=== PATIENT | male | born 1960 ===

== ENCOUNTER 2020-05-18 14:26 | Emergency (ER) | payer SELFPAY ==
[~2020-05-18] VITALS: Ht 177.8 cm; Wt 70.0 kg
--- NOTE | 2020-05-18 14:40 | NUR ---
PT INFORMED HE IS AT [facility]. PT MUMBLES HE IS FINE AND THEN BACK TO SLEEP
--- NOTE | 2020-05-18 16:06 | NUR ---
CLOTHES REMOVED FROM PATIENT IN PREPARATION FOR CT. NO TRAUMA NOTED UPPER TORSO, ARMS NECK. REMAINS SLEEPING, BREATHING EVEN AND UNLABORED
--- NOTE | 2020-05-18 16:25 | NUR ---
CT COMPLETED. REMAINS SLEEPING
[2020-05-18 16:41] VITALS: BP 108/64
--- NOTE | 2020-05-18 17:14 | NUR ---
DROWSY AND DIFFICULT TO ARROUSE. WILL CONTINUE TO MONITOR
--- NOTE | 2020-05-18 18:03 | NUR ---
PT AWAKENING WHEN ROUSED. DISCUSSED THAT HE NEEDS TO BE ABLE TO WALK BEFORE HE IS DISCHARGED. PT REQUESTING FOOD AND THAT THEN HE WILL TRY TO WALK
--- NOTE | 2020-05-18 18:25 | NUR ---
chika set upright and pt eating snacks
--- NOTE | 2020-05-18 18:54 | NUR ---
PT GETTING CLOTHES ON. REPORT TO JAYCEE WATERS
--- NOTE | 2020-05-18 18:54 | NUR ---
BEDSIDE REPORT FROM MADELINE WATERS, ASSUMMING CARE OF PT AT THIS TIME
--- NOTE | 2020-05-18 19:11 | NUR ---
PT AMB TO EXIT DID NOT WANT TO WAIT FOR PAPERWORK TO BE COMPLETED DESPITE RN ENCOURAGEMENT TO DO SO
== END 2020-05-18 19:13 | disposition left against medical advice (07) ==
LOC: ED 18:05
DX: F10.120 Alcohol abuse with intoxication, uncomplicated (principal); M54.2 Cervicalgia; R51.9 Headache, unspecified; Y90.0 Blood alcohol level of less than 20 mg/100 ml
CPT/HCPCS: 70450; 72125; 99285

== ENCOUNTER 2020-05-20 12:06 | Emergency (ER) | payer SELFPAY ==
[~2020-05-20] VITALS: Ht 170.2 cm; Wt 78.0 kg
--- NOTE | 2020-05-20 12:24 | NUR ---
pt placed on 2L NC for sp02 dropping
--- NOTE | 2020-05-20 13:45 | NUR ---
ASSUMED CARE FROM EVELIN WILEY. PT RESTING LAZARA GALEAS AT THIS TIME, WILL CONTINUE TO MONITOR.
[2020-05-20 16:43] VITALS: BP 107/51
--- NOTE | 2020-05-20 17:07 | NUR ---
PT AMBULATED WITH STEADY GAIT TO LOBBY.
== END 2020-05-20 17:08 | disposition home or self-care (01) ==
LOC: ED 12:44
DX: F10.229 Alcohol dependence with intoxication, unspecified (principal); F17.200 Nicotine dependence, unspecified, uncomplicated; Y90.0 Blood alcohol level of less than 20 mg/100 ml
CPT/HCPCS: 99283; 99406

== ENCOUNTER 2020-06-06 19:45 | Emergency (ER) | payer OTHER ==
[~2020-06-06] VITALS: Ht 165.1 cm; Wt 61.4 kg
--- NOTE | 2020-06-06 20:08 | NUR ---
MIMA, FOUND BY [employer] NEAR COURT HOUSE UNABLE TO STAND, STATES THAT HE IS HAVING A DIABETIC PROBLEM WELL LOWER BACK PAIN. REPORTS THAT HE HAS NOT HAS HIS METFORMIN IN "MONTHS." PER EMS BLOOD SUGAR ON SCENE 193 MG/DL. PT STATES THAT HE IS LOOKING FOR A PLACE TO STAY FOR THE NIGHT.
--- NOTE | 2020-06-06 21:00 | NUR ---
PATIENT RESTING ON STRETCHER WITH EYES CLOSED, WAKES WITH EFFORT, AAOX4, NAD, VSS, CALL GONZALEZ WITHIN REACH, WILL CONTINUE TO MONITOR
--- NOTE | 2020-06-06 22:00 | NUR ---
PATIENT RESTING QUIETLY ON STRETCHER, VSS, NAD, CALL GONZALEZ WITHIN REACH, WILL CONTINUE TO MONITOR
--- NOTE | 2020-06-06 23:00 | NUR ---
PATIENT RESTING ON STRETCHER WITH EYES CLOSED, WAKES EASILY, NAD, CALL GONZALEZ WITHIN REACH, WILL CONTINUE TO MONITOR
--- NOTE | 2020-06-06 23:13 | NUR ---
PATIENT REQUESTED URINAL, VOIDED 400ML CLEAR YELLOW URINE.
--- NOTE | 2020-06-07 00:05 | NUR ---
PATIENT RESTING WITH EYES CLOSED, ROUSES EASILY, NAD, VSS, CALL GONZALEZ WITHIN REACH, WILL CONTINUE TO MONITOR
--- NOTE | 2020-06-07 01:04 | NUR ---
PATIENT RESTING ON STRETCHER WITH EYES CLOSED, WAKES EASILY, NAD, VSS, CALL GONZALEZ WITHIN REACH, WILL CONTINUE TO MONITOR
--- NOTE | 2020-06-07 02:00 | NUR ---
PATIENT RESTING WITH EYES CLOSED, WAKES EASILY, NAD, VSS, CALL GONZALEZ WITHIN REACH, WILL CONTINUE TO MONITOR
[2020-06-07 03:02] VITALS: BP 117/61
== END 2020-06-07 03:05 | disposition home or self-care (01) ==
LOC: ED 20:14
DX: F10.120 Alcohol abuse with intoxication, uncomplicated (principal); F17.200 Nicotine dependence, unspecified, uncomplicated; Z72.9 Problem related to lifestyle, unspecified; Y90.0 Blood alcohol level of less than 20 mg/100 ml
CPT/HCPCS: 99285

== ENCOUNTER 2020-07-28 02:14 | Emergency (ER) | payer MEDICAID ==
[~2020-07-28] VITALS: Ht 172.7 cm; Wt 75.0 kg
--- NOTE | 2020-07-28 02:33 | NUR ---
BIB [facility] ETOH INTOXICATION, PT YELLED AT THIS NURSE AND SWUNG FIST IN THIS RN DIRECTION WHEN ATTACHING MONITORS, PT O2 SAT 84 TO 95 WHEN SLEEPING PLACED BLOWBY O2 MASK BY PATIENTS FACE FOR SATS IN HIGH 96 97, WILL MONITOR
--- NOTE | 2020-07-28 03:23 | NUR ---
PT SLEEPING IN NAD AT THIS TIME
--- NOTE | 2020-07-28 05:22 | NUR ---
pt sleping in nad
--- NOTE | 2020-07-28 05:36 | NUR ---
PT NOT FOLLOWING COMMANDS PT CONTINUES TO BE INTOXICATED
--- NOTE | 2020-07-28 07:00 | NUR ---
assumed care of pt. report from Laisha WATERS. pt here for ETOH. pt heavily intoxicated and is currently sleeping with blow by O2 in place. per repot pt has been uncooperative with staff and assessments. pt is malodorous and not wearing a mask. no family at bedside
--- NOTE | 2020-07-28 09:00 | NUR ---
0900 late note: this pt was D/C by another RN
[2020-07-28 09:37] VITALS: BP 126/50
== END 2020-07-28 09:57 | disposition home or self-care (01) ==
LOC: ED 04:34
DX: F10.220 Alcohol dependence with intoxication, uncomplicated (principal); F17.210 Nicotine dependence, cigarettes, uncomplicated; Y90.9 Presence of alcohol in blood, level not specified
CPT/HCPCS: 99285; 99406

== ENCOUNTER 2020-09-27 18:33 | Emergency (ER) | payer MEDICAID ==
[~2020-09-27] VITALS: Ht 167.6 cm; Wt 75.0 kg
[2020-09-27] MEDS ORDERED: L.E.T SOLUTION TP ONE ×2 (19:00)
[2020-09-27] MEDS ORDERED: FOLIC ACID 5 MG/ML IM ONE (19:00)
[2020-09-27] MEDS ORDERED: DIPH,PERTUSS(ACELL),TET VAC/PF 0.5 ML IM-VACC ONE ×2 (19:00)
[2020-09-27] MEDS ORDERED: THIAMINE 100 MG/ML, 2ML IM ONE (19:00)
--- NOTE | 2020-09-27 19:01 | NUR ---
Report to EVELIN Garcia. To assume full care. Pt connected to BP and O2 monitors.
--- NOTE | 2020-09-27 19:11 | NUR ---
REPORT FROM SEBAS WATERS. PT RESTING. VSS. PT GIVEN TDAP AND LET APPLIED TO CUT ON RIGHT EYEBROW. PT TO CT
[2020-09-27 19:33] LABS: ANION GAP 11 mmol/L (5-15); CALCIUM 7.8 mg/dL (8.5-10.1); CHLORIDE 104 mmol/L (98-107); CREATININE 0.92 mg/dL (0.7-1.3)
[2020-09-27] MEDS ORDERED: THIAMINE 100MG TABLET ONE (19:43)
[2020-09-27] MEDS ORDERED: THIAMINE 100 MG/ML, 2ML ONE (19:48)
--- NOTE | 2020-09-27 20:10 | NUR ---
pt medicated. tech at bedside irrigating wound
[2020-09-27] MEDS ORDERED: LIDOCAINE-MPF 1%, 5ML ONE (20:22)
[2020-09-27] MEDS ORDERED: LIDOCAINE 1%, 10ML INFIL ONE (20:30)
--- NOTE | 2020-09-27 20:31 | NUR ---
pa at bedside.
--- NOTE | 2020-09-27 21:35 | NUR ---
pt resting. even rise and fall of chest observed. vss.
--- NOTE | 2020-09-27 22:21 | NUR ---
PT SLEEPING. VSS EVEN RISE AND FALL OF CHEST OBSERVED. PT HAS NO NEEDS AT THIS TIME
--- NOTE | 2020-09-28 00:37 | NUR ---
PT GIVEN A SANDWICH . PT STILL UNABLE TO AMBULATE. WILL REASSESS LATER
--- NOTE | 2020-09-28 02:06 | NUR ---
PT RESTING. EVEN RISE AND FALL OF CHEST OBSERVED.
--- NOTE | 2020-09-28 02:14 | NUR ---
PT WAKES TO VERBAL STIMULI. PT UNABLE TO AMBULATE. WILL CONTINUE TO MONITOR
[2020-09-28 03:40] VITALS: BP 131/76
--- NOTE | 2020-09-28 03:40 | NUR ---
Patient given discharge instructions and they have confirmed that they understand the instructions. Patient ambulatory with steady gait.
== END 2020-09-28 03:42 | disposition home or self-care (01) ==
LOC: ED 20:25
DX: T14.8XXA Other injury of unspecified body region, initial encounter (principal); S09.90XA Unspecified injury of head, initial encounter; G92 Toxic encephalopathy; F10.20 Alcohol dependence, uncomplicated; X58.XXXA Exposure to other specified factors, initial encounter; Y93.89 Activity, other specified; Y92.89 Other specified places as the place of occurrence of the external cause; Y99.8 Other external cause status; Y90.0 Blood alcohol level of less than 20 mg/100 ml
CPT/HCPCS: 12052; 36415; 70450; 72125; 80048; 80320; 90471; 90715; 96372; 99285; J3411; G0480

== ENCOUNTER 2020-09-29 10:54 | Emergency (ER) | payer MEDICAID ==
[~2020-09-29] VITALS: Ht 177.8 cm; Wt 80.0 kg
--- NOTE | 2020-09-29 12:14 | NUR ---
PT FOUND DOWN IN [address]. SURROUNDED BY FOUR PEREZ CANS. PT ADMITS TO DRINKING. PT RESTING IN [facility]. CONNECTED TO MONITORING EQUIPMENT
--- NOTE | 2020-09-29 14:23 | NUR ---
PT AROUSABLE. STILL UNABLE TO WALK AT THIS POINT
[2020-09-29 15:39] VITALS: BP 133/72
--- NOTE | 2020-09-29 15:39 | NUR ---
PT RESTING IN [facility]. WCTM
--- NOTE | 2020-09-29 16:20 | NUR ---
TASK NURSE: PT RESTING IN BED. PT IN NAD. BREATHING EVEN AND UNLABORED. VSS
--- NOTE | 2020-09-29 18:18 | NUR ---
PT AMBULATED OUT WITH STEADY GATE. PT GIVEN TAXI VOUCHER
== END 2020-09-29 18:19 | disposition home or self-care (01) ==
LOC: ED 13:48
DX: F10.121 Alcohol abuse with intoxication delirium (principal); G92 Toxic encephalopathy; Y90.0 Blood alcohol level of less than 20 mg/100 ml
CPT/HCPCS: 99283

== ENCOUNTER 2020-10-11 12:52 | Emergency (ER) | payer MEDICAID ==
[~2020-10-11] VITALS: Ht 167.6 cm; Wt 71.0 kg
[2020-10-11] MEDS ORDERED: LORazepam 2 MG/ML, 1ML IVPush PRN (13:00)
[2020-10-11] MEDS ORDERED: THIAMINE 100 MG in SODIUM CHLORIDE 0.9% 50 ML IVPB ONE (13:00)
[2020-10-11] MEDS ORDERED: SODIUM CHLORIDE 0.9% 1,000ML IVBOLUS ONE (13:00)
--- NOTE | 2020-10-11 13:10 | NUR ---
PT BIB [facility]. PT WAS PICED UP FROM [facility] FOR POSSIBLY GOING THROUGH ALCOHOL WITHDRAWALS. PT REQUESTED TO GO TO [facility], BUT [facility] REFUSED TO TAKE HIM BEFORE MEDICAL CLEARANCE. PT HAS SOME SUBTLE TREMORS IN HIS HANDS. PT STATED THAT HE HASNT HAD A DRINK IN 3 DAYS.
[2020-10-11] MEDS ORDERED: ONDANSETRON 2MG/ML, 2ML ONE (13:17)
[2020-10-11] MEDS ORDERED: THIAMINE 100 MG/ML, 2ML ONE (13:17)
[2020-10-11] MEDS ORDERED: FAMOTIDINE 20 MG/2 ML ONE (13:17)
[2020-10-11 13:21] LABS: BASOPHILS % (AUTO) 3 % (0-1); EOSINOPHILS % (AUTO) 2 % (1-7); LYMPHOCYTES % (AUTO) 15 % (22-44); MEAN CORPUSCULAR HEMOGLOBIN 31.4 pg (27.5-34.5); MEAN PLATELET VOLUME 8.3 fL (7.4-10.4); MONOCYTES % (AUTO) 16 % (2-9); NEUTROPHILS % (AUTO) 65 % (42-75); PLATELET COUNT 147 x10^3/uL (130-400); RED BLOOD COUNT 4.64 x10^6/uL (4.38-5.82)
[2020-10-11 13:23] LABS: MD NO
[2020-10-11] MEDS ORDERED: PLEASE ENTER ALLERGIES MC SCH (13:30)
[2020-10-11] MEDS ORDERED: ONDANSETRON 2MG/ML, 2ML IVPush ONE (13:30)
[2020-10-11] MEDS ORDERED: PLEASE ENTER HEIGHT AND WEIGHT MC SCH (13:30)
[2020-10-11] MEDS ORDERED: FAMOTIDINE 20 MG/2 ML IVPush ONE (13:30)
[2020-10-11 13:32] LABS: ALANINE AMINOTRANSFERASE 48 U/L (12-78); ALBUMIN 3.9 g/dL (3.4-5.0); ANION GAP 8 mmol/L (5-15); CALCIUM 8.7 mg/dL (8.5-10.1); CHLORIDE 100 mmol/L (98-107); CREATININE 0.84 mg/dL (0.7-1.3)
[2020-10-11 13:35] LABS: ALKALINE PHOSPHATASE 178 U/L (45-117); TOTAL PROTEIN 8.3 g/dL (6.4-8.2)
--- NOTE | 2020-10-11 14:16 | NUR ---
PT RESTIN COMFORTABLY IN [facility]. PT STATED THAT HE "FEELS OK RIGHT NOW." PT CALM, SUBTLE TREMORS NOTED IN HANDS. PT DENIES ANY HEADACHE, ANXIETY, OR HALLUCINATIONS. THIAMINE REQUESTED FROM PHARMACY.
--- NOTE | 2020-10-11 14:53 | NUR ---
PHARMACY CALLED TO CHECK STATUS OF PT'S THIAMINE INFUSION THAT WAS ORDERED. PHARMACY STATED THAT THEY NEED TO MAKE A NEW BAG AND WILL SEND IT SHARIFA.
[2020-10-11 16:15] VITALS: BP 163/96
--- NOTE | 2020-10-11 16:16 | NUR ---
Patient given discharge instructions and rx, they have confirmed that they understand the instructions. Patient ambulatory with steady gait.
== END 2020-10-11 16:17 | disposition home or self-care (01) ==
LOC: ED 13:35
DX: K85.90 Acute pancreatitis without necrosis or infection, unspecified (principal); F10.139 Alcohol abuse with withdrawal, unspecified; R45.4 Irritability and anger; R11.2 Nausea with vomiting, unspecified; I10 Essential (primary) hypertension; E11.9 Type 2 diabetes mellitus without complications; Y90.0 Blood alcohol level of less than 20 mg/100 ml
CPT/HCPCS: 36415; 80053; 80320; 83690; 85025; 96365; 96375; 99284; J2405; J3411; J7030; 96366; G0480

== ENCOUNTER 2020-10-26 04:49 | Observation (INO) | payer MEDICAID ==
[~2020-10-26] VITALS: Ht 165.1 cm; Wt 64.0 kg
--- NOTE | 2020-10-26 05:04 | NUR ---
PT LAYING ON SIDEWALK AFTER GETTING KICKED OUT OF [facility]. [employer] CALLED EMS BECAUSE PT WAS TO UNSTEADY ON FEET TO WALK. PT HAS HX OF ETOH ABUSE. PT ON MONITOR AND BLANKET PROVIDED TO PT.
[2020-10-26] MEDS ORDERED: THIAMINE 100 MG/ML, 2ML IM ONE (05:30)
[2020-10-26] MEDS ORDERED: THIAMINE 100 MG/ML, 2ML ONE (05:32)
--- NOTE | 2020-10-26 07:10 | NUR ---
REPORT FROM MARQUIS, ASSUME CARE OF PT AT THIS TIME. PT SLEEPING, NAD. CALL LIGHT WITHIN REACH.
--- NOTE | 2020-10-26 08:03 | NUR ---
PT ASSISTED UP AND COOPERATIVE WITH CARE. AMBULATORY IN LI WITH STEADY GAIT. PT OFFERED TAXI HOME. [place] AND REFUSES TAXI.
[2020-10-26 08:05] VITALS: BP 122/87
== END 2020-10-26 08:13 | disposition home or self-care (01) ==
LOC: ED 05:16 → EDIP 07:00
PROVIDERS: ADMIT Emergency Medicine; ATTEND Emergency Medicine
DX: F10.120 Alcohol abuse with intoxication, uncomplicated (principal); F17.200 Nicotine dependence, unspecified, uncomplicated; R32 Unspecified urinary incontinence
CPT/HCPCS: 96372; 99284; G0378; J3411

== ENCOUNTER 2020-10-27 08:30 | Emergency (ER) | payer MEDICAID ==
[~2020-10-27] VITALS: Ht 172.7 cm; Wt 80.0 kg
--- NOTE | 2020-10-27 08:38 | NUR ---
PT MIMA FOUND IN FRONT OF A MARKET FOR C/O ETOH. PER EMS PT A&OX2, BG 232. PT CHANGED INTO GOWN, WARMING MEASURES IN PLACE. CONNECTED TO MONITORS. CALL LIGHT WITHIN REACH.
[2020-10-27] MEDS ORDERED: THIAMINE 100 MG/ML, 2ML ONE (08:46)
[2020-10-27] MEDS ORDERED: THIAMINE 100 MG/ML, 2ML IM ONE (09:00)
--- NOTE | 2020-10-27 09:07 | NUR ---
PT MEDICATED PER EMAR. WARMING MEASURES IN PLACE. FOOD TRAY ORDERED
--- NOTE | 2020-10-27 09:51 | NUR ---
PT SLEEPING ON GURNEY, RESPIRATIONS EVEN AND UNLABORED. VSS. CALL LIGHT WITHIN REACH. FOOD TRAY AT BS
--- NOTE | 2020-10-27 10:19 | NUR ---
PT AWAKE, EATING FOOD TRAY. NADN/VSS. CALL LIGHT WITHIN REACH
[2020-10-27 11:44] VITALS: BP 102/50
--- NOTE | 2020-10-27 11:45 | NUR ---
PT SLEEPING ON GURNEY, RESPIRATIONS EVEN AND UNLABORED. CALL LIGHT WITHIN REACH. NADN/VSS. PT RESPONSIVE TO NAME AND STIMULI.
--- NOTE | 2020-10-27 12:45 | NUR ---
Patient given discharge instructions and they have confirmed that they understand the instructions. Patient ambulatory with steady gait. pt given new set of clothes.
== END 2020-10-27 12:47 | disposition home or self-care (01) ==
LOC: ED 08:54
DX: F10.129 Alcohol abuse with intoxication, unspecified (principal); I45.19 Other right bundle-branch block; Y90.0 Blood alcohol level of less than 20 mg/100 ml
CPT/HCPCS: 93005; 96372; 99283; J3411

== ENCOUNTER 2020-12-14 17:34 | Emergency (ER) | payer MEDICAID ==
[~2020-12-14] VITALS: Ht 167.6 cm; Wt 59.0 kg
--- NOTE | 2020-12-14 17:50 | NUR ---
PT PLACED IN HOSPITAL GOWN. PT FALLS ASLEEP QUICKLY AFTER BEING AROUSED VERBALLY. PT SPEECH SLURRED. NO OBVIOUS INJURY TO HEAD ON PT, PT UNABLE TO STATE WHETHER HE FELL OR NOT. PT RESTING CALMLY IN BED AT THIS TIME.
--- NOTE | 2020-12-14 18:20 | NUR ---
PT RESTING CALMLY IN BED WITH EYES CLOSED AT THIS TIME. VITAL MONITORS ARE IN PLACE. WILL CONTINUE TO MONITOR.
--- NOTE | 2020-12-14 19:08 | NUR ---
Report received from EVELIN Myrick. This RN to assume care. Patient sleeping in [facility]. Respirations even and unlabored.
[2020-12-14 21:12] VITALS: BP 129/67
--- NOTE | 2020-12-14 21:12 | NUR ---
Patient awake; AAOx4, GCS 15. Patient ambulatory with a steady gait. Discharge instructions offered; patient refused. Belongings with patient.
== END 2020-12-14 21:14 | disposition home or self-care (01) ==
LOC: ED 18:21
DX: G92 Toxic encephalopathy (principal)
CPT/HCPCS: 99283

== ENCOUNTER 2020-12-18 11:45 | Emergency (ER) | payer MEDICAID ==
[~2020-12-18] VITALS: Ht 162.6 cm; Wt 62.3 kg
--- NOTE | 2020-12-18 12:03 | NUR ---
BIB EMS, PT +ETOH AND IS REQUESTING DETOX. DENIES ANY OTHER COMPLAINTS. FSBS = 321 PER EMS, BREATHALYZER = [phone]. FRANCINE, ED PA AT BEDSIDE, PT ASSESSMENT, POC DISCUSSED AND QUESTIONS ANSWERED. CALL LIGHT W\I REACH, PT WATCHING TV.
--- NOTE | 2020-12-18 12:07 | NUR ---
PULSE OX FALLS TO 87%, 02 2L NC PLACED WITH EFFECT. LUNG SOUNDS CLEAR T/O
[2020-12-18 12:28] LABS: PH, VENOUS 7.382 pH (7.320-7.420)
[2020-12-18] MEDS ORDERED: SODIUM CHLORIDE 0.9% 1,000ML IVBOLUS ONE (12:30)
--- NOTE | 2020-12-18 12:31 | NUR ---
PIV EST AND IVF INFUSING W/O DIFFICULTY. CALL LIGHT W/I REACH, NAD NOTED.
[2020-12-18 12:32] LABS: BASOPHILS % (AUTO) 1 % (0-1); EOSINOPHILS % (AUTO) 0 % (1-7); LYMPHOCYTES % (AUTO) 20 % (22-44); MEAN CORPUSCULAR HEMOGLOBIN 32.2 pg (27.5-34.5); MEAN CORPUSCULAR HGB CONC 33.7 g/dL (33.2-36.2); MEAN PLATELET VOLUME 8.1 fL (7.4-10.4); MONOCYTES % (AUTO) 7 % (2-9); NEUTROPHILS % (AUTO) 72 % (42-75); PLATELET COUNT 97 x10^3/uL (130-400); RED BLOOD COUNT 3.71 x10^6/uL (4.38-5.82)
[2020-12-18 12:47] LABS: ALANINE AMINOTRANSFERASE 35 U/L (12-78); ALBUMIN 3.4 g/dL (3.4-5.0); ANION GAP 8 mmol/L (5-15); CHLORIDE 99 mmol/L (98-107)
[2020-12-18 12:49] LABS: ALKALINE PHOSPHATASE 107 U/L (45-117); BILIRUBIN,TOTAL 0.4 mg/dL (0.2-1.0); TOTAL PROTEIN 7.2 g/dL (6.4-8.2)
--- NOTE | 2020-12-18 12:53 | NUR ---
PT USED CALL LIGHT TO REQUEST URINAL. ABLE TO USE URINAL W/O DIFFICULTY.
[2020-12-18 12:59] LABS: ACETONE, SERUM Negative (Negative)
--- NOTE | 2020-12-18 14:00 | NUR ---
PT PLACED ON RA TRIAL.
--- NOTE | 2020-12-18 14:28 | NUR ---
PT TO GO TO [facility] FOR [facility]. PT MEDICALLY CLEARED.
--- NOTE | 2020-12-18 14:32 | NUR ---
SPOKE WITH ELMER LORENZO AT [facility]. BEDS ARE AVAILABLE. PT PROVIDED WITH TAXI VOUCHER FOR TRANSPORT TO [facility].
--- NOTE | 2020-12-18 14:35 | NUR ---
OX SATS MAINTAINED AT GREATER THAN 92% ON RA. VSS
[2020-12-18 14:36] VITALS: BP 127/77
--- NOTE | 2020-12-18 14:37 | NUR ---
Patient/Caregiver given discharge instructions and they have confirmed that they understand the instructions. Patient ambulatory with steady gait. NAD, all questions answered appropriately, denies additional needs at this time. No personal belongings left in room after discharge. PT PROVIDED WITH TAXI VOUCHER FOR TRANSPORT TO [facility].
== END 2020-12-18 14:38 | disposition home or self-care (01) ==
LOC: ED 11:49
DX: F10.220 Alcohol dependence with intoxication, uncomplicated (principal); R73.9 Hyperglycemia, unspecified; F17.210 Nicotine dependence, cigarettes, uncomplicated; Z91.14 Patient's other noncompliance with medication regimen; Z59.0 Homelessness; Y90.0 Blood alcohol level of less than 20 mg/100 ml
CPT/HCPCS: 36415; 80053; 82010; 82803; 83690; 83930; 85025; 96360; 99283; 99406; J7030

== ENCOUNTER 2020-12-29 12:10 | Emergency (ER) | payer MEDICAID ==
[~2020-12-29] VITALS: Ht 167.6 cm; Wt 60.0 kg
--- NOTE | 2020-12-29 12:22 | NUR ---
PT BIBA FROM THE SIDEWALK BY [facility] [employer]. PER EMS PT IS INTOXICATED AND HAS AMS. PT IS CURRENTLY ONLY ORIENTED TO SELF. PER EMS UNKNOWN IF PT FELL OR NOT, PT CURRENTLY IN C COLLAR AT THIS TIME. PT STATES HE IS A DIABETIC BUT DOES NOT REMEMBER ANY OTHER MEDICAL HX. PER EMS PT BS IS 127. PT RESTING IN [facility], MONITORING IN PLACE, URINAL PROVIDED, NADN AT THIS TIME, WCTM.
--- NOTE | 2020-12-29 13:15 | NUR ---
ASSUMED CARE OF PT AT THIS TIME. BEDSIDE REPORT FROM DARIO WATERS. PT BACK FROM CT ON [facility] WITH HOB SLIGHTLY ELEVATED, OKAY PER PROVIDER DR. DIGGS. C-COLLAR AND C-SPINE PRECAUTIONS IN PLACE. RESTING IN POSITION OF COMFORT. VSS. DENIES ANY PAIN. ASSISTED WITH URINAL ON [facility] MAINTAINING C-SPINE PRECAUTIONS. 450 ML VOIDED URINE. CONT PULSE OX, BP MONITORS REMAIN IN PLACE. FALL PRECAUTIONS IN PLACE. PT ORIENTED TO SELF "JD KABA", "62", PRESIDENT "REYNALDO", PLACE "LIVE IN [place]." WHEN THIS RN ASKED PT WHAT HAPPENED AND BROUGHT HIM TO THE EMERGENCY ROOM, HE STATES "I THINK I FELL, DRINKING BIG TIME." UNABLE TO RECALL WHAT ALCOHOL WAS CONSUMED.
--- NOTE | 2020-12-29 13:31 | NUR ---
PT NOW SLEEPING, RESP REGULAR AND UNLABORED, EQUAL CHEST RISE. O2 SAT DECREASING TO 68-70'S WHILE SLEEPING, PLACED ON 3L NC O2, PULSE OX 100%. DISCUSSED WITH DR. DIGGS, AWARE. PT AROUSES TO VOICE, DROWSY. FALL PRECAUTIONS AND CALL LIGHT IN REACH
--- NOTE | 2020-12-29 14:30 | NUR ---
DR. DIGGS AT BEDSIDE, C-COLLAR REMOVED. TO CONTINUE TO MONITOR PT. PT VERY DROWSY, VSS. AROUSES TO VOICE. SITTER AT DOOR FOR SAFETY OBSERVATION. FALL PRECAUTIONS IN PLACE.
--- NOTE | 2020-12-29 15:07 | NUR ---
PT RESTING IN POSITION OF COMFORT WITH EYES CLOSED, AROUSES EASILY TO VOICE. PT ASSISTED WITH URINAL BY ED TECHS. 350 ML OUTPUT VOIDED URINE. VSS. RESP REGULAR AND UNLABORED. PULSE OX 99%2L NC. WILL CONTINUE TO MONITOR. FALL PRECAUTIONS IN PLACE. SITTER PRESENT FOR SAFETY OBSERVATION. CALL LIGHT IN REACH
--- NOTE | 2020-12-29 16:28 | NUR ---
PT REMAINS VERY DROWSY, AROUSES TO VOICE. DENIES NEED TO USE RESTROOM. URINAL AT BEDSIDE IF NEEDED. NO CHANGES IN MENTAL STATUS FROM INITIAL ASSESSMENT. VSS. RESP REGULAR AND UNLABORED. CALL LIGHT IN REACH. FALL PRECAUTIONS IN PLACE. SITTER PRESENT FOR SAFETY OBS.
--- NOTE | 2020-12-29 17:30 | NUR ---
Note geraldoone in EDM - 12/29/20 at 1755 by MAR PT RESTING IN POSITION OF COMFORT, DOZING INTERMITTENTLY. ADMIT PROVIDER HAS SEEN PT, AWAITING ROOM ON FLOOR. VSS. SR ON MONITOR. NO CHANGES IN MENTATION. CALL LIGHT IN REACH. FALL PRECAUTIONS IN PLACE. SITTER REMAINS AT DOOR.
--- NOTE | 2020-12-29 17:35 | NUR ---
PT RESTING IN POSITION OF COMFORT. 900 ML VOIDED URINE IN URINAL. DENIES ANY PAIN. PT REMAINS DROWSY, AROUSES TO VOICE, ABLE TO HOLD OWN URINAL AND VOID. VSS. PT REMOVING O2 FROM NOSE, RA SAT 88%, 02 REPLACED AND PT EDUCATED ON NEED, PULSE OX 99% 2L NC O2. CALL LIGHT IN REACH. FALL PRECAUTIONS IN PLACE. WILL CONTINUE TO MONITOR
--- NOTE | 2020-12-29 18:38 | NUR ---
PT RESTING COMFORTABLY IN BED, AROUSES EASILY TO VOICE. REPOSITIONED FOR COMFORT. ADDITIONAL WARM BLANKET PROVIDED. REMAINS VERY DROWSY. VSS. DENIES NEED TO USE RESTROOM. CALL LIGHT IN REACH. FALL PRECAUTIONS IN PLACE
[2020-12-29 18:39] VITALS: BP 107/72
--- NOTE | 2020-12-29 18:55 | NUR ---
BEDSIDE REPORT AND TRANSFER OF CARE TO OLIVER WATERS AT THIS TIME.
--- NOTE | 2020-12-29 19:18 | NUR ---
Assumed care of pt, pt visibly,notably intoxicated. Pt resting at this time, sleeping, will discharge when sobered up. Pt denies needs, denies wanting any food or drink, able to use bedside urinal without difficulty.
--- NOTE | 2020-12-29 19:23 | NUR ---
Pt more awake, provided with PO fluids and crackers. Tolerating well. States he had too much to drink. States that he stays on the streets right now.
--- NOTE | 2020-12-29 19:44 | NUR ---
Pt tolerating PO, able to ambulate independently w/o difficulty. Dr. Aguirre updated.
--- NOTE | 2020-12-29 20:04 | NUR ---
Pt ambulated out of the ED w/ steady gait. All discharge paperwork and personal belongings secured with patient.
--- NOTE | 2020-12-29 20:05 | NUR ---
Patient/Caregiver given discharge instructions and they have confirmed that they understand the instructions. Patient ambulatory with steady gait.
== END 2020-12-29 20:07 | disposition home or self-care (01) ==
LOC: ED 13:25
DX: F10.120 Alcohol abuse with intoxication, uncomplicated (principal); M54.2 Cervicalgia; F17.200 Nicotine dependence, unspecified, uncomplicated; Y90.0 Blood alcohol level of less than 20 mg/100 ml
CPT/HCPCS: 70450; 72125; 99285

== ENCOUNTER 2020-12-30 17:10 | Emergency (ER) | payer MEDICAID ==
[~2020-12-30] VITALS: Ht 165.1 cm; Wt 60.0 kg
--- NOTE | 2020-12-30 17:29 | NUR ---
FIRST CONTACT: MIMA AFTER "DRINKING TOO MUCH" PT WAS FOUND ON GROUND WITH EMPTY BOTTLE. PT DENIES HITTING HEAD OR LOC. PT POSTIONED TO COMFORT IN BED. ATTACHED TO MONITORS. VSS. HAILE. DR. DIGGS TO BEDSIDE FOR EVALUATION
[2020-12-30 18:04] VITALS: BP 117/68
--- NOTE | 2020-12-30 18:11 | NUR ---
PT ASLEEP WITH EVEN AND UNLABORED RESPIRATIONS. WILLIAM. LAZARA.
--- NOTE | 2020-12-30 18:56 | NUR ---
Pt visibly intoxicated. Alert and oriented. Will d/c when clinically sober.
--- NOTE | 2020-12-30 19:09 | NUR ---
Patient/Caregiver given discharge instructions and they have confirmed that they understand the instructions. Patient ambulatory with steady gait. NAD, all questions answered appropriately, denies additional needs at this time. No personal belongings left in room after discharge.
== END 2020-12-30 19:10 | disposition home or self-care (01) ==
LOC: ED 17:40
DX: F10.120 Alcohol abuse with intoxication, uncomplicated (principal); Y90.0 Blood alcohol level of less than 20 mg/100 ml; F17.210 Nicotine dependence, cigarettes, uncomplicated
CPT/HCPCS: 70450; 72125; 99285

== ENCOUNTER 2020-12-31 17:56 | Emergency (ER) | payer MEDICAID ==
[~2020-12-31] VITALS: Ht 167.6 cm; Wt 75.0 kg
[2020-12-31 18:16] VITALS: BP 125/78
--- NOTE | 2020-12-31 19:02 | NUR ---
RECEIVED REPORT FROM EVELIN WHITLEY
--- NOTE | 2020-12-31 19:11 | NUR ---
REPORT TO SAMUEL, TRANSFER OF CARE AT THIS TIME.
--- NOTE | 2020-12-31 19:57 | NUR ---
PT RESTING ON GURNEY, DENIES NEEDS AT THIS TIME.
--- NOTE | 2020-12-31 21:00 | NUR ---
PT RESTING ON GURNEY, GIVEN OJ, DENIES NEEDS AT THIS TIME.
--- NOTE | 2020-12-31 22:02 | NUR ---
PT RESTING ON GURNEY, DENIES NEEDS AT THIS TIME.
--- NOTE | 2020-12-31 22:24 | NUR ---
Patient given discharge instructions and they have confirmed that they understand the instructions. Patient ambulatory with steady gait. PT refused vitals
== END 2020-12-31 22:27 | disposition home or self-care (01) ==
LOC: ED 18:20
DX: F10.129 Alcohol abuse with intoxication, unspecified (principal); Y90.0 Blood alcohol level of less than 20 mg/100 ml
CPT/HCPCS: 99283

== ENCOUNTER 2021-01-13 12:34 | Emergency (ER) | payer MEDICAID, OTHER ==
[~2021-01-13] VITALS: Ht 172.7 cm; Wt 81.0 kg
[2021-01-13] MEDS ORDERED: INSULIN REGULAR 100 UNITS/ML, 3ML VIAL IVPush ONE (14:00)
[2021-01-13] MEDS ORDERED: SODIUM CHLORIDE 0.9% 1,000ML IVBOLUS ONE (14:00)
[2021-01-13 14:23] LABS: ALBUMIN 2.6 g/dL (3.4-5.0); ANION GAP 9 mmol/L (5-15); CALCIUM 7.4 mg/dL (8.5-10.1); CHLORIDE 115 mmol/L (98-107)
[2021-01-13 14:26] LABS: CREATININE 0.86 mg/dL (0.7-1.3)
[2021-01-13 14:27] LABS: RED BLOOD COUNT 3.26 x10^6/uL (4.38-5.82)
[2021-01-13 14:28] LABS: MEAN CORPUSCULAR HEMOGLOBIN 32.4 pg (27.5-34.5); MEAN CORPUSCULAR HGB CONC 32.7 g/dL (33.2-36.2); MEAN PLATELET VOLUME 7.7 fL (7.4-10.4); NEUTROPHILS % (AUTO) 58 % (42-75); PLATELET COUNT 347 x10^3/uL (130-400); RED CELL DISTRIBUTION WIDTH 16.1 % (9.4-14.8)
[2021-01-13 14:29] LABS: BASOPHILS % (AUTO) 1 % (0-1); EOSINOPHILS % (AUTO) 3 % (1-7); LYMPHOCYTES % (AUTO) 24 % (22-44); MONOCYTES % (AUTO) 14 % (2-9)
[2021-01-13] MEDS ORDERED: PLEASE ENTER ALLERGIES MC SCH (14:30)
--- NOTE | 2021-01-13 14:59 | NUR ---
holding insulin for fsbs of 179. MD Pollard made aware. Fluids infusing. BP low. also notified of that. no new orders.
[2021-01-13] MEDS ORDERED: LACTATED RINGERS 1,000 ML IVBOLUS ONE (16:00)
[2021-01-13 16:27] VITALS: BP 78/40
--- NOTE | 2021-01-13 16:27 | NUR ---
PT STILL MOSTLY SLEEPING. MORE FLUIDS ORDERED AND ADMINISTERED. PT USED URINAL SEVERAL TIMES. COOPERATIVE WITH CARE.
== END 2021-01-13 18:23 | disposition home or self-care (01) ==
LOC: EDBD → ED 15:51 → EDIP 15:52 → UNDOADMOB 15:52 → MERGE 15:52 → ED 16:49 → EDIP 01-14 01:40 → 4WST 01-14 01:40 → EDIP 01-14 03:32 → 4WST 01-14 03:32
DX: R41.82 Altered mental status, unspecified (principal); F10.120 Alcohol abuse with intoxication, uncomplicated; I95.9 Hypotension, unspecified; Y90.0 Blood alcohol level of less than 20 mg/100 ml
CPT/HCPCS: 36415; 80048; 80320; 82040; 82962; 85025; 96360; 96361; 99283; J7030; J7120; G0480

== ENCOUNTER 2021-01-17 12:14 | Observation (INO) | payer MEDICAID ==
[~2021-01-17] VITALS: Ht 167.6 cm; Wt 75.0 kg
[2021-01-17] MEDS ORDERED: THIAMINE 100 MG/ML, 2ML ONE (12:58)
[2021-01-17] MEDS ORDERED: THIAMINE 100 MG/ML, 2ML IM ONE (13:00)
--- NOTE | 2021-01-17 13:07 | NUR ---
Pt left lateral sleeping, wakes up with loud verbal/stimulation. On monitor, o2, rails up bed low. Will continue to monitor.
--- NOTE | 2021-01-17 16:04 | NUR ---
Pt still not able to navigate community safely, on cont pulse ox, side rails up. RR equal and unlabored.
--- NOTE | 2021-01-17 17:19 | NUR ---
Pt able to stand, navigate community and its resources safely, steady gait. VSS. Dc with community resources and d/c papers
[2021-01-17 17:22] VITALS: BP 125/71
== END 2021-01-17 17:31 | disposition home or self-care (01) ==
LOC: ED 12:59 → EDIP 13:05
PROVIDERS: ADMIT Emergency Medicine; ATTEND Emergency Medicine
DX: F10.229 Alcohol dependence with intoxication, unspecified (principal); R09.02 Hypoxemia
CPT/HCPCS: 93005; 96372; 99284; G0378; J3411